=== PATIENT | male | born 1995 | race Two or more races ===

== ENCOUNTER 2020-02-23 16:34 | Emergency (ER) | payer MEDICAID, OTHER ==
[~2020-02-23] VITALS: Ht 182.9 cm; Wt 90.7 kg
[2020-02-23 16:50] VITALS: BP 150/86
[2020-02-23] MEDS ORDERED: LIDOCAINE 1% HCL (LOCAL ANESTH.) INJ 20ML MDV ID ONE (19:15)
== END 2020-02-23 20:16 | disposition home or self-care (01) ==
LOC: ER 16:34
DX: S01.512A Laceration without foreign body of oral cavity, initial encounter (principal); W50.0XXA Accidental hit or strike by another person, initial encounter; Y93.89 Activity, other specified; Y92.89 Other specified places as the place of occurrence of the external cause; Y99.8 Other external cause status
CPT/HCPCS: 12011; 99283; J2001